=== PATIENT | male | born 1970 | race Caucasian/White ===

== ENCOUNTER 2023-09-16 03:31 | Emergency (ER) | payer OTHER ==
[~2023-09-16] VITALS: Ht 170.2 cm; Wt 88.6 kg
[2023-09-16 03:41] VITALS: TEMP 98.6
[2023-09-16 04:22] LABS: BASOPHILS % (AUTO) 0.5 % (0.0-2.0); EOSINOPHILS % (AUTO) 1.1 % (1.0-6.0); HEMATOCRIT 43.3 % (41-53); HEMOGLOBIN 14.1 g/dL (13.5-17.5); LYMPHOCYTES # (AUTO) 1.2 K/uL (1.0-4.8); LYMPHOCYTES % (AUTO) 9.1 % (22.0-44.0); MEAN CORPUSCULAR HEMOGLOBIN 29.1 pg (26.0-34.0); MEAN CORPUSCULAR HGB CONC 32.7 G/dL (31.0-37.0); MEAN CORPUSCULAR VOLUME 89 fL (80-100); MONOCYTES # (AUTO) 0.8 K/uL (0.1-1.0); MONOCYTES % (AUTO) 6.1 % (2.0-9.0); NEUTROPHILS # (AUTO) 10.8 K/uL (1.8-7.7); NEUTROPHILS % (AUTO) 83.2 % (40.0-70.0); PLATELET COUNT (AUTO) 330 K/uL (150-450); RED BLOOD CELL COUNT(AUTO) 4.85 MIL/uL (4.50-5.90); RED CELL DISTRIBUTION WIDTH 13.9 % (11.5-14.5)
[2023-09-16] MEDS: SODIUM CHLORIDE 0.9% 1,000 ML IV ONE (04:27)
[2023-09-16] MEDS: HYDROmorphone HCL 2 MG/ML SYRINGE IVP ONE (04:28)
[2023-09-16] MEDS: FAMOTIDINE 20 MG/2 ML VIAL IVP ONE (04:28)
[2023-09-16 04:34] LABS: ANION GAP 5 mmol/L (8-16); CALCIUM, TOTAL 8.5 mg/dL (8.8-10.5); CARBON DIOXIDE 30 mmol/L (22-29); CHLORIDE 103 mmol/L (98-107); GLOMERULAR FILTR. RATE CALC > 60 mL/min (>60); GLUCOSE,RANDOM 106 mg/dL (70-110); LIPASE 30 U/L (16-77); POTASSIUM 3.6 mmol/L (3.5-5.1); SODIUM SERUM 138 mmol/L (136-145); UREA NITROGEN, BLOOD 15 mg/dL (7-18)
[2023-09-16] MEDS ORDERED: SODIUM CHLORIDE 0.9% 100 ML ONE (04:40)
[2023-09-16] MEDS ORDERED: IOHEXOL 350 MG/ML 100 ML VIAL ONE (04:40)
[2023-09-16 05:33] LABS: COVID AG,FIA SOURCE NASAL SWAB
[2023-09-16 05:37] LABS: APPEARANCE,URINE CLEAR (CLEAR); BILIRUBIN,URINE NEGATIVE (NEGATIVE); COLOR,URINE LIGHT YELLOW (YELLOW); GLUCOSE, URINE (UA) NEGATIVE (NEGATIVE); KETONES,URINE NEGATIVE (NEGATIVE); LEUKOCYTE ESTERASE ,URINE SMALL (NEGATIVE); NITRATE,URINE NEGATIVE (NEGATIVE); OCCULT BLOOD,URINE NEGATIVE (NEGATIVE); PH,URINE 5.5 (5.0-8.0); PH,URINE DRUG SCREEN 5.5 (5.0-8.0); PROTEIN,URINE NEGATIVE (NEGATIVE); SPECIFIC GRAVITIY, URINE 1.031 (1.003-1.030); UROBILINOGEN,URINE <=1.0 mg/dL (<=1.0)
[2023-09-16 05:42] LABS: ALBUMIN 3.6 g/dL (3.4-5.0); BILIRUBIN,DIRECT 0.1 mg/dL (0.00-0.20); BILIRUBIN,TOTAL 0.5 mg/dL (0.1-1.0); TOTAL PROTEIN, SERUM 7.2 g/dL (6.4-8.2)
[2023-09-16 05:44] LABS: ALCOHOL, URINE DRUG SCREEN NEGATIVE (NEGATIVE); AMPHET/METH SCREEN,URINE POSITIVE (NEGATIVE); BARBITURATE SCREEN, URINE NEGATIVE (NEGATIVE); BENZODIAZEPINES SCREEN,URINE NEGATIVE (NEGATIVE); CANNABINOID SCREEN,URINE NEGATIVE (NEGATIVE); COCAINE SCREEN,URINE NEGATIVE (NEGATIVE); METHADONE SCREEN, URINE NEGATIVE (NEGATIVE); OPIATE SCREEN,URINE POSITIVE (NEGATIVE); PHENCYCLIDINE SCREEN,URINE NEGATIVE (NEGATIVE)
[2023-09-16] MEDS: PIPERACILLIN/TAZO 3.375 GM/D5W 50 ML IV ONE ×2 (05:47→09:32)
[2023-09-16 05:51] LABS: SARS-COV2 (COVID) ANTIGEN,FIA Negative (Negative)
[2023-09-16 06:05] LABS: BACTERIA,URINE None Seen /HPF (None Seen); RBC,URINE None Seen /HPF (0-2); SQUAMOUS EPITHELIAL CELL,UR Few /LPF (None Seen)
[2023-09-16 07:24] LABS: TROPONIN I-HIGH SENSITIVITY 17 ng/L (<76)
[2023-09-16] MEDS: LORazepam 2 MG/ML VIAL IVP ONE (08:28)
[2023-09-16] MEDS: LABETALOL HCL 5 MG/ML 20 ML VIAL IVP ONE (08:29)
[2023-09-16 10:24] VITALS: BP 146/94; PULSE 64; RESP 16
== END 2023-09-16 11:16 | disposition short-term general hospital (02) ==
LOC: EMS 03:36
DX: F15.10 Other stimulant abuse, uncomplicated (principal); R10.12 Left upper quadrant pain; F17.210 Nicotine dependence, cigarettes, uncomplicated; F12.90 Cannabis use, unspecified, uncomplicated; Z20.822 Contact with and (suspected) exposure to COVID-19
CPT/HCPCS: 99285; 74176; 96365; 96375; 96367; 96361; 87426; 80048; 80076; 83690; 84484; 85025; 87040; 86850; 86900; 86901; 93005; 80307; 81001; 36415; Q9967; J3490 ×2; J1170; J2060; J2543; J7030; J7050